=== PATIENT | female | born 1965 | race Two or more races ===

== ENCOUNTER 2017-05-15 10:09 | Inpatient (IN) | payer SELFPAY ==
[~2017-05-15] VITALS: Ht 162.6 cm; Wt 110.7 kg
[~2017-05-15 10:09] MED LIST: CLAR250S PO
[2017-05-15] MEDS ORDERED: SODIUM CHLORIDE 0.9% 10ML VIAL ONE (12:47)
[2017-05-15] MEDS ORDERED: IOHEXOL-350 100 ML BOTTLE ONE (12:47)
[2017-05-15 13:16] LABS: BASOPHILS % 0.7 % (0.0-2.0); EOSINOPHILS % 1.8 % (0.0-5.0); HEMATOCRIT. 39.7 % (36.0-48.0); HEMOGLOBIN. 13.8 g/dL (12.0-16.0); LYMPHOCYTES % 39.7 % (20.0-50.0); MEAN CORPUSCULAR HEMOGLOBIN 30.1 pg (28.0-32.0); MEAN CORPUSCULAR VOLUME 86.6 fL (81.0-99.0); MEAN PLATELET VOLUME 9.2 fl (7.4-10.4); MONOCYTES % 6.8 % (2.0-8.0); PLATELET 167 x1000/uL (130-400); RED BLOOD CELL COUNT 4.58 mill/uL (4.2-5.4); RED CELL DISTRIBUTION WIDTH 13.2 % (11.6-14.6)
[2017-05-15 13:33] LABS: CARBON DIOXIDE 29 mEq/L (21-32); CHLORIDE 105 mEq/L (98-107); CREATINE KINASE MB FRACTION 1.9 ng/mL (0.5-3.6); TROPONIN I < 0.02 ng/mL (0.00-0.04)
[2017-05-15] MEDS ORDERED: ASPIRIN 325MG EC TABLET PO ONE (14:15)
[2017-05-15 18:09] VITALS: BP 144/73
[2017-05-15] MEDS ORDERED: MAGNESIUM/ALUMINUM HYDROXIDE/SIMETHICONE 30ML UDC PO PRN (18:45)
[2017-05-15] MEDS ORDERED: DIPHENHYDRAMINE 50MG/ML VIAL IV PRN (18:45)
[2017-05-15] MEDS ORDERED: ACETAMINOPHEN 325MG TABLET PO PRN (18:45)
[2017-05-15] MEDS ORDERED: CLONIDINE 0.1MG TABLET PO PRN (18:45)
[2017-05-15] MEDS ORDERED: ONDANSETRON HCL 4MG/2ML VIAL IV PRN (18:45)
[2017-05-15] MEDS ORDERED: PNEUMOCOCCAL 23-VAL P-SAC VAC 0.5 ML IM ONE (19:15)
[2017-05-15] MEDS ORDERED: LEVO175T7 PO (19:40)
[2017-05-15 20:00] VITALS: BP 144/73
[2017-05-15] MEDS ORDERED: REGADENOSON 0.4 MG/5 ML IV NR (20:15)
[2017-05-15 20:17] VITALS: BP 137/68
[2017-05-15 21:00] VITALS: BP 122/69
[2017-05-15] MEDS: SODIUM CHLORIDE 0.9% INJ 3ML FLUSH IVF SCH (22:06)
[2017-05-15 22:10] VITALS: BP 131/71
[2017-05-15 23:00] VITALS: BP 100/49
[2017-05-16] VITALS (11 sets, daily range): BP systolic 100–135; BP diastolic 45–87
[2017-05-16] MEDS ORDERED: LEVOTHYROXINE SODIUM 175MCG TABLET PO SCH (06:50)
[2017-05-16] MEDS: SODIUM CHLORIDE 0.9% INJ 3ML FLUSH IVF SCH (06:59)
[2017-05-16 07:36] LABS: HDL CHOLESTEROL 39 mg/dL (40-59); LDL CHOLESTEROL 115 mg/dL (5-100); TROPONIN I < 0.02 ng/mL (0.00-0.04)
[2017-05-16] MEDS ORDERED: ASPIRIN 81MG EC TABLET PO SCH (09:00)
[2017-05-16] MEDS ORDERED: REGADENOSON 0.4 MG/5 ML IV ONE (09:18)
== END 2017-05-16 14:20 | disposition home or self-care (01) | DRG 203 ==
LOC: ER 12:52 → 3WST 14:28 → ENRESERV 16:48
PROVIDERS: ADMIT Internal Medicine; ATTEND Internal Medicine
DX: R07.89 Other chest pain (principal); Z68.41 Body mass index [BMI] 40.0-44.9, adult; E03.9 Hypothyroidism, unspecified; E66.9 Obesity, unspecified; Z83.3 Family history of diabetes mellitus; Z87.01 Personal history of pneumonia (recurrent)
CPT/HCPCS: 36415; 70450; 71010; 71275; 78452; 80053; 80061; 82553; 84443; 84484; 85025; 90732; 93005; 93017; 93306; 93970; 99285; A4216; A9500; J2785; Q9967